=== PATIENT | female | born 1970 | race Caucasian/White ===

== ENCOUNTER → 2020-01-07 13:19 | Outpatient (CLI) | payer OTHER, SELFPAY ==
--- NOTE | ~2020-01-07 | XR_ITS ---
XR lumbar spine 2-3V DATE: 01/07/2020 13:40 INDICATION: Low back pain for 2 years TECHNIQUE: AP, lateral, coned lateral lumbosacral views COMPARISON: 04/08/2008 lumbar spine MRI examination 04/16/2009 lumbar spine FINDINGS: There is normal alignment of the lumbar spine. No fracture or bone destruction or spondylol isthesis. There is moderately severe degenerative disc disease at L4-5 and L5-S1. The remaining lumbar interspa kathrny are well preserved. The sacroiliac joints are intact. Surgical clips, right upper quadrant, consistent with cholecystectomy IMPRESSION: Moderately severe degenerative disc disease at L4-5 and L5-S1 Reviewed, dictated and finalized at location A.
== END ==
PROVIDERS: PCP Physician Assistant; Visit Provider Physician Assistant
DX: M54.5 Low back pain (principal); G89.29 Other chronic pain; M51.36 Other intervertebral disc degeneration, lumbar region
CPT/HCPCS: 72100

== ENCOUNTER 2020-02-11 15:41 | Outpatient (CLI) | payer OTHER, SELFPAY ==
--- NOTE | ~2020-02-11 | MM_ITS ---
EXAMINATION: MM screening stephon BI w maximus HISTORY: Screening mammogram TECHNIQUE: Craniocaudal and mediolateral oblique 3-D tomosynthesis images were obtained and synthetic 2-D images were generated. CAD analysis was submitted and interpreted. COMPARISON: , 05/31/2017, 05/20/2016 bilateral digital screening mammogram examinations BREAST PARENCHYMAL COMPOSITION: There are scattered areas of fibroglandular density................. FINDINGS: There is asymmetry in the upper right breast on MLO view. Diagnostic right mammogram is rec ommended, with ultrasound if required Otherwise there is no evidence of suspicious mass, calcification, or architectural distortion to sugg est malignancy in either breast. There has been no other suspicious interval change. IMPRESSION: 1. Asymmetry, upper right breast on MLO view 2. Recommend routine screening mammography in one year. Diagnostic right mammogram is recommended, with ultrasound if required Reviewed, dictated and finalized at location A.
== END 2020-02-11 15:42 | disposition home or self-care (01) ==
LOC: ANHIMG 15:44
PROVIDERS: PCP Physician Assistant; Visit Provider Physician Assistant
DX: Z12.31 Encounter for screening mammogram for malignant neoplasm of breast (principal); R92.8 Other abnormal and inconclusive findings on diagnostic imaging of breast
CPT/HCPCS: 77063; 77067

== ENCOUNTER 2020-03-10 12:17 | Outpatient (CLI) | payer OTHER, SELFPAY ==
--- NOTE | ~2020-03-10 | MMUS_ITS ---
EXAMINATION: MM diagnostic mammo unilat RT, US breast RT limited HISTORY: Follow-up right breast asymmetry TECHNIQUE: Additional 3-D tomosynthesis images of the right breast were performed and synthetic 2-D i mages were generated. CAD analysis was submitted and interpreted. High resolution Limited right breas t ultrasound was performed. COMPARISON: Comparison to multiple prior studies sequentially, with oldest reviewed study dated 06/2012. BREAST PARENCHYMAL COMPOSITION: The breasts are heterogenously dense, which may obscure small masses. FINDINGS: MAMMOGRAPHIC FINDINGS: There are no suspicious masses, calcifications or architectural distortion to suggest malignancy. ULTRASOUND: Limited right breast ultrasound: Normal heterogeneous echotexture without focal solid or cystic mass. IMPRESSION: 1. No evidence for malignancy in the right breast. 2. Routine yearly screening mammogram and regular clinical breast examination are recommended. BI-RADS Category 1: Negative Reviewed, dictated and finalized at location A. IMPRESSION: 1. No evidence for malignancy in the right breast. 2. Routine yearly screening mammogram and regular clinical breast examination a re recommended. BI-RADS Category 1: Negative
== END 2020-03-10 12:18 | disposition home or self-care (01) ==
PROVIDERS: PCP Physician Assistant; Referring Provider Obstetrics & Gynecology; Visit Provider Physician Assistant
DX: N64.89 Other specified disorders of breast (principal)
CPT/HCPCS: 76642; 77065

== ENCOUNTER 2021-10-05 15:01 | Outpatient (CLI) | payer BC, SELFPAY ==
--- NOTE | ~2021-10-05 | MM_ITS ---
EXAMINATION: MM screening stephon BI w maximus HISTORY: Screening TECHNIQUE: Craniocaudal and mediolateral oblique 3-D tomosynthesis images were obtained and synthetic 2-D images were generated. CAD analysis was submitted and interpreted. COMPARISON: Comparison to multiple prior studies sequentially, with oldest reviewed study dated 04/29. BREAST PARENCHYMAL COMPOSITION: Breast composed of scattered areas of fibroglandular density FINDINGS: There is no evidence of suspicious mass, calcification, or architectural distortion to sugg est malignancy in either breast. There has been no suspicious interval change. IMPRESSION: 1. No mammographic evidence of malignancy. 2. Recommend routine screening mammography in one year. BI-RADS Category 1: Negative Reviewed, dictated and finalized at location A.
== END 2021-10-05 15:02 | disposition home or self-care (01) ==
PROVIDERS: PCP Physician Assistant; Visit Provider Obstetrics & Gynecology
DX: Z12.31 Encounter for screening mammogram for malignant neoplasm of breast (principal)
CPT/HCPCS: 77063; 77067

== ENCOUNTER 2023-02-06 07:24 | Outpatient (CLI) | payer BC, SELFPAY ==
--- NOTE | ~2023-02-06 | MM_ITS ---
EXAMINATION: MM screening stephon BI w maximus HISTORY: Screening mammogram TECHNIQUE: Craniocaudal and mediolateral oblique 3-D tomosynthesis images were obtained and synthetic 2-D images were generated. Bilateral rotated lateral CC views. CAD analysis was submitted and interp reted. COMPARISON: 10/05/2021 bilateral screening mammogram 03/10/2020 diagnostic right mammogram and limited right breast ultrasound, reported negative 02/11/2020, 07/03/2018 bilateral screening mammogram examinations BREAST PARENCHYMAL COMPOSITION: The breasts are heterogeneously dense, which may obscure small masses . FINDINGS: There is no evidence of suspicious mass, calcification, or architectural distortion to sugg est malignancy in either breast. There has been no suspicious interval change. IMPRESSION: 1. No mammographic evidence of malignancy. 2. Recommend routine screening mammography in one year. BI-RADS Category 1: Negative Reviewed, dictated and finalized at location A.
== END 2023-02-06 07:25 | disposition home or self-care (01) ==
PROVIDERS: PCP Physician Assistant; Visit Provider Obstetrics & Gynecology
DX: Z12.31 Encounter for screening mammogram for malignant neoplasm of breast (principal)
CPT/HCPCS: 77063; 77067

== ENCOUNTER 2023-03-27 09:38 | Outpatient (CLI) | payer BC, SELFPAY ==
--- NOTE | ~2023-03-27 | XR_ITS ---
XR hand LT min 3V DATE: 03/27/2023 09:53 INDICATION: Left hand fracture for 3 weeks TECHNIQUE: 3 views COMPARISON: None FINDINGS: Approximately one cortical width dorsally displaced recent spiral fracture of the shaft of the third metacarpal bone. No periosteal new bone formation is identified. On the oblique view there is a subtle thin approximately 6 mm long linear density overlying the head of the third proximal phalanx and lateral aspect of the proximal interphalangeal joint, not readily v isualized on the other 2 views. This may be a subtle cortical avulsion fracture of undetermined age. Soft tissue swelling of the third digit. Consider third digit radiographs if further evaluation of th is area is indicated clinically. No fracture or dislocation is detected. IMPRESSION: Spiral fracture of the third metacarpal bone Suspected subtle cortical avulsion fracture at the region of the third proximal interphalangeal joint , with soft tissue swelling of this digit; consider third finger radiographs if clinically appropriat e Reviewed, dictated and finalized at location B. IMPRESSION: Spiral fracture of the third metacarpal bone Suspected subtle cortical avulsion fracture at the region of the third proximal interphalangeal joint, with soft tissue swelling of this digit; consider third finger radiographs if clinically appropriate
== END 2023-03-27 09:39 | disposition home or self-care (01) ==
PROVIDERS: PCP Physician Assistant; Visit Provider Plastic Surgery
DX: S62.302A Unspecified fracture of third metacarpal bone, right hand, initial encounter for closed fracture (principal)
CPT/HCPCS: 73130

== ENCOUNTER 2023-04-17 09:27 | Outpatient (CLI) | payer BC, SELFPAY ==
--- NOTE | ~2023-04-17 | XR_ITS ---
XR hand LT min 3V 04/17/2023 09:57 INDICATION: Left third metacarpal fracture PROCEDURE: 3 views left hand COMPARISON: FINDINGS: Stable alignment of healing spiral fracture left third metacarpal with developing callus fo rmation. Tiny avulsion fracture at the third proximal interphalangeal joint, age indeterminate, uncha nged. The soft tissues appear within normal limits. No foreign bodies are identified. IMPRESSION: 1: Stable alignment of healing extra-articular fracture left third metacarpal. 2: Stable age-indeterminate avulsion fracture third proximal interphalangeal joint. Reviewed, dictated and finalized at location B. HANDLER IMPRESSION: 1: Stable alignment of healing extra-articular fracture left third metacarpal. 2: Stable age-indeterminate avulsion fracture third proximal interphalangeal delmy int.
== END 2023-04-17 09:28 | disposition home or self-care (01) ==
PROVIDERS: PCP Physician Assistant; Visit Provider Plastic Surgery
DX: S62.303D Unspecified fracture of third metacarpal bone, left hand, subsequent encounter for fracture with routine healing (principal)
CPT/HCPCS: 73130

== ENCOUNTER 2024-06-19 09:32 | Outpatient (CLI) | payer BC, SELFPAY ==
--- NOTE | ~2024-06-19 | XR_ITS ---
Right Hand Technique: PA and lateral views were obtained. Clinical History: Arthralgia Findings: No acute fracture or dislocation is seen. Osseous alignment is anatomic. Joint spaces are p reserved. Soft tissues are unremarkable. Impression: Unremarkable right hand. Reviewed, dictated and finalized at location M. [employer] Impression: Unremarkable right hand.
--- NOTE | ~2024-06-19 | XR_ITS ---
Right foot Technique: AP and lateral views were obtained. Clinical History: Arthralgia Findings: No acute fracture or dislocation is seen. Osseous alignment is anatomic. Joint spaces are p reserved without erosive or degenerative change. Soft tissues are unremarkable. Impression: Unremarkable right foot radiographs. Reviewed, dictated and finalized at location . AND DIE MACHINIST Impression: Unremarkable right foot radiographs.
--- NOTE | ~2024-06-19 | XR_ITS ---
Left foot Technique: AP and lateral views were obtained. Clinical History: Arthralgia Findings: No acute fracture or dislocation is seen. Osseous alignment is anatomic. Joint spaces are p reserved without erosive or degenerative change. Soft tissues are unremarkable. Impression: Unremarkable left foot radiographs. Reviewed, dictated and finalized at location . ENT SETTER Impression: Unremarkable left foot radiographs.
--- NOTE | ~2024-06-19 | XR_ITS ---
Left Hand Technique: PA and lateral views were obtained. Clinical History: Arthralgia Findings: No acute fracture or dislocation is seen. Osseous alignment is anatomic. Joint spaces are p reserved. Soft tissues are unremarkable. Impression: Unremarkable left hand. Reviewed, dictated and finalized at location M. GER [employer]UDIT Impression: Unremarkable left hand.
== END 2024-06-19 09:33 | disposition home or self-care (01) ==
LOC: MICIMG 09:35
PROVIDERS: PCP Physician Assistant; Visit Provider Physician Assistant
DX: S62.303D Unspecified fracture of third metacarpal bone, left hand, subsequent encounter for fracture with routine healing (principal); X58.XXXD Exposure to other specified factors, subsequent encounter; S63.283A Dislocation of proximal interphalangeal joint of left middle finger, initial encounter; X58.XXXA Exposure to other specified factors, initial encounter; M79.672 Pain in left foot; M79.671 Pain in right foot; M79.641 Pain in right hand
CPT/HCPCS: 73120; 73620

== ENCOUNTER 2024-09-04 15:18 | Outpatient (CLI) | payer BC, SELFPAY ==
--- NOTE | ~2024-09-04 | MM_ITS ---
EXAMINATION: MM screening stephon BI w maximus HISTORY: Screening TECHNIQUE: Craniocaudal and mediolateral oblique 3-D tomosynthesis images were obtained and synthetic 2-D images were generated. CAD analysis was submitted and interpreted. COMPARISON: Comparison to multiple prior studies sequentially, with oldest reviewed study dated 07/2017. BREAST PARENCHYMAL COMPOSITION: Dense: The breasts are heterogeneously dense, which may obscure small masses FINDINGS: There is no evidence of suspicious mass, calcification, or architectural distortion to sugg est malignancy in either breast. There has been no suspicious interval change. IMPRESSION: 1. No mammographic evidence of malignancy. 2. Recommend routine screening mammography in one year. BI-RADS Category 1: Negative Reviewed, dictated and finalized at location A.
== END 2024-09-04 15:19 | disposition home or self-care (01) ==
PROVIDERS: PCP Physician Assistant; Visit Provider Obstetrics & Gynecology
DX: Z12.31 Encounter for screening mammogram for malignant neoplasm of breast (principal)
CPT/HCPCS: 77063; 77067